=== PATIENT | female | born 1940 ===

== ENCOUNTER 2019-04-11 16:57 | Emergency (ER) | payer MEDICARE, SELFPAY ==
--- NOTE | 2019-04-11 17:21 | PC.NURSE ---
1715 spouse at desk stating he was not going to have his sitting in lobby as she was a Ca pt he was going to take her somewhere else.
== END 2019-04-11 17:21 | disposition left against medical advice (07) ==
PROVIDERS: PCP Family Medicine
DX: Z53.21 Procedure and treatment not carried out due to patient leaving prior to being seen by health care provider (principal)
CPT/HCPCS: 99199

== ENCOUNTER 2019-04-11 18:57 | Inpatient (IN) | payer MEDICARE, SELFPAY ==
--- NOTE | ~2019-04-11 | XR_ITS ---
EXAMINATION: XR chest 1V portable DATE: 04/11/2019 19:35 INDICATION: Pancreatic cancer presenting with weakness suspicious for stroke. TECHNIQUE: frontal view of the chest was obtained. COMPARISON: None FINDINGS: Right internal jugular central venous port catheter with distal tip at the caudal superior vena cava. The lungs are clear with no focal airspace opacities, pulmonary edema, pleural effusion or pneumotho rax. The cardiomediastinal silhouette is normal. Moderate thoracolumbar spondylosis with bridging ost eophytes at multiple levels consistent with diffuse idiopathic skeletal hyperostosis (DISH). Bilatera l rotator cuff calcific tendinitis. IMPRESSION: 1. No acute cardiopulmonary disease. Reviewed, dictated and finalized at location A. ED LINEN DISTRIBUTOR
--- NOTE | ~2019-04-11 | MR_ITS ---
EXAMINATION: MR brain/brain stem wo/w con DATE: 04/12/2019 14:33 INDICATION: Cerebral vascular accident. Right hemiparesis. TECHNIQUE: Magnetic resonance imaging (MRI) of the brain and brainstem was performed without and with 12 mL MultiHance intravenous contrast. Sequences included sagittal and axial T1-weighted FSE, axial diffusion-weighted FS EPI, axial T2*-weighted GRE, axial T2-weighted FLAIR Propeller, and axial T2-we ighted Propeller. Postcontrast sequences included axial, sagittal, and coronal T1-weighted FSE. Appar ent diffusion coefficient (ADC) maps were created. COMPARISON: Head CT 04/11/2019 FINDINGS: There is no intracranial hemorrhage, acute infarction, or abnormal intracranial mass lesion . There are scattered areas of nonspecific increased T2-weighted signal intensity in the cerebral whi te matter, which is within normal limits for the patient's age. The ventricles are normal in size. Th e orbits are normal. There is mild mucosal thickening in the paranasal sinuses. The mastoid air cells are normal. IMPRESSION: 1. Normal aging brain. Reviewed, dictated and finalized at location A. ER CONSULTANT IMPRESSION: 1. Normal aging brain.
--- NOTE | ~2019-04-11 | CT_ITS ---
EXAMINATION: CT brain wo con DATE: 04/11/2019 19:32 INDICATION: Neurologic changes TECHNIQUE: Computed tomography (CT) of the head was performed without intravenous contrast. Sagittal and coronal reconstructions were performed. The mA was adjusted according to patient size. Iterative reconstruction technique was employed. The dose-length product was 605.33 mGy-cm. COMPARISON: None FINDINGS: No acute intracranial hemorrhage, acute infarction or abnormal extra axial fluid collection. There is minimal scattered white matter hypoattenuation consistent with chronic small vessel ischemic disease . Symmetric prominence of the sulci consistent with mild age-appropriate diffuse cerebral volume los s. Ventricles are normal and symmetric. No mass/mass effect. The orbits, paranasal sinuses and masto id air cells are normal. IMPRESSION: 1. No acute intracranial process. 2. Age-related changes including mild diffuse volume loss and minimal scattered white matter hypoatte nuation consistent with chronic small vessel ischemic disease. Reviewed, dictated and finalized at location A. AULICS TEACHER IMPRESSION: 1. No acute intracranial process. 2. Age-related changes including mild diffuse volume loss and minimal scattered white matter hypoattenuation consistent with chronic small vessel ischemic dis ease.
[2019-04-11 19:07] VITALS: BP 114/53; PULSE 111; RESP 18; TEMP 37; O2SAT 99
--- NOTE | 2019-04-11 19:12 | ECG_ITS ---
Measurements Intervals [place] Rate: 110 P: 70 CO: 131 QRS: -3 QRSD: 85 T: 75 QT: 307 QTc: 416 Interpretive Statements SINUS TACHYCARDIA DELAYED PRECORDIAL R/S TRANSITION NONSPECIFIC T-WAVE ABNORMALITY- LATERAL LEADS BASELINE ARTIFACT- I, III, AVR ABNORMAL ECG Electronically Signed On 04-11-2019 20:06:52 PRESS BREAKER by Amish Perez D.O.
[2019-04-11 19:16] LABS: Glucose Point of Care 81 (65-105)
[2019-04-11 19:26] LABS: Mean Corpuscular HGB Conc 31.3 g/dl (32-36); Mean Corpuscular Hemoglobin 26.5 pg (26-34); Mean Corpuscular Volume 84.7 fl (80-100); Mean Platelet Volume 10.7 fl (7.4-10.4); Platelet Count Result 166 k/mm3 (150-375); Red Blood Count 3.78 M/mm3 (4.2-5.4); Red Cell Distribution Width 16.1 % (11.5-14.5); White Blood Count 20.2 K/mm3 (4.5-10.0)
[2019-04-11 19:38] LABS: INR 1.4; Prothrombin Time 16.3 Seconds (11.1-14.7)
[2019-04-11 19:38] LABS: Blood Urea Nitrogen 15 mg/dL (7-17); Calcium 8.5 mg/dL (8.4-10.2); Carbon Dioxide 31 mmol/L (22-30); Chloride 95 mmol/L (98-107); Estimated Glomerular Filt Rate > 60; Glucose 88 mg/dL (65-105); Potassium 3.6 mmol/L (3.4-5.0); Sodium 135 mmol/L (137-145)
[2019-04-11 19:44] LABS: Lymphocytes Absolute Manual 5.05 K/mm3 (1.1-4.5); Monocytes Percent Manual 2 % (3-9); Neutrophils Percent Manual 73 % (46-73); Total Cells Counted 100
[2019-04-11 19:45] LABS: Toxic Granulation Present (NORMAL)
[2019-04-11 19:46] VITALS: BP 134/54; PULSE 110; RESP 18; O2SAT 98
[2019-04-11 19:49] LABS: Troponin I < 0.012 ng/mL (0.000-0.034)
--- NOTE | 2019-04-11 19:57 | ED.NEUROSD ---
HPI - Neuro Symptoms/Deficit General Chief Complaint: Neuro Symptoms/Deficit Stated Complaint: unable to move leg earlier Time Seen by Provider: 04/11/19 19:43 Source: patient, family () and RN notes reviewed Mode of arrival: wheelchair Limitations: no limitations History of Present Illness HPI Narrative: A 78 y/o female presents to the ED from the [facility] unable to move her rt leg beginning at 2 AM Related Data Allergies Allergy/AdvReac Type Severity Reaction Status Date / Time No Known Allergies Allergy Unverified 07/07/17 09:28 [facility] Past Medical History Medical History Essential (primary) hypertension History of rectal polyps Hypercholesteremia Hypoglycemia M[facility] (current) use of insulin Malignant neoplasm of pancreas, unspecified Mixed hyperlipidemia DONNELL (obstructive sleep apnea) Other hyperlipidemia Pancreatic mass Type 2 diabetes mellitus with hyperglycemia, with long-term current use of insulin Surgical History Surgical History History of spinal surgery Social History Social History Smoking status: Never smoker Alcohol intake: never Gender identity (if verbalized by the patient): Female Exam Const: General: no acute distress, well developed and ill appearing chronically Orientation/consciousness: patient oriented x3 (alert) and Other orientation findings (Alert) Limitations: no limitations and other limitations (elderly and frail) HENMT: Head: normocephalic and atraumatic Ears: external ears normal General nose exam: No nasal discharge present and no epistaxis Face and sinus: face symmetric Mouth: Yes lip normal, Yes tongue normal and Yes moist mucous membranes Throat: other (No exudate, no erythema) Eyes: Conjunctivae: conjunctivae normal Sclera: sclerae normal EOM: EOMs intact bilaterally Neck: Neck: full ROM, no lymphadenopathy and supple Thyroid: thyroid normal Chest: Chest palpation & inspection: no tenderness and other (port in place) Resp: Effort & Inspection: normal respiratory effort Auscultation: clear to auscultation bilaterally, no rales, no rhonchi, no wheezes and other (breath sounds equal) Cardio: Rate: regular rate Rhythm: regular rhythm Heart sounds: no gallops and no murmurs GI: Inspection: non-distended GI Palp: No abdominal tenderness and Yes Soft to palpation Auscultation: other (bowel sounds present) : General: Yes no CVA tenderness Back/Spine/Pelvis: Back: no CVA tenderness Thoracic/Lumbar Spine: thoracic and lumbar spine normal to inspection Skin: General skin exam: normal color and no rashes or lesions noted Neuro: General: patient oriented x3 (alert), moves all extremities and no focal motor deficits Cranial nerves: Yes facial symmetry and Yes Other cranial nerve findings present (drop 5- strength all over RLE does not appear to be disproportionally weak) Speech: normal speech Motor exam (neuro): Motor abnormalities not present Extrem: General: full ROM and no pedal edema Left lower extremity: foot (droop) Psych: Affect: normal affect Course Vital Signs Vital signs: Vital Signs Temperature 98.6 F 04/11/19 19:07 Pulse Rate 111 H 04/11/19 19:07 Respiratory Rate 18 04/11/19 19:07 Blood Pressure 114/53 L 04/11/19 19:07 Pulse Oximetry 99 04/11/19 19:07 Temperature 98.6 F 04/11/19 19:07 Pulse Rate 110 H 04/11/19 19:46 Respiratory Rate 18 04/11/19 19:46 Blood Pressure 134/54 L 04/11/19 19:46 Pulse Oximetry 98 04/11/19 19:46 MDM - Neuro Symptoms/Deficit Lab Data Result diagrams: 04/11/19 19:18 04/11/19 19:18 Labs: Lab Results 04/11/19 04/11/19 04/11/19 Range/Units 19:15 19:18 19:18 WBC 20.2 H (4.5-10.0) K/mm3 RBC 3.78 L (4.2-5.4) M/mm3 Hgb 10.0 L (12.0-15.0) g/dL Hct 32.0 L (37.0-47.0) % MCV 84.
[2019-04-11 20:45] VITALS: BP 130/68; PULSE 110; RESP 18; O2SAT 96
--- NOTE | 2019-04-11 21:31 | ED.WEAKNESS ---
HPI - Weakness General Chief complaint: Neuro Symptoms/Deficit Stated complaint: unable to move leg earlier Time Seen by Provider: 04/11/19 19:43 Source: patient, family and RN notes reviewed Mode of arrival: wheelchair Limitations: no limitations History of Present Illness HPI Narrative: A 78 y/o female presents to the ED from the [facility] with RLE weakness. The pt states that she got up at 2AM this morning to use the restroom but that she was unable to move her RLE. She reports that after 8AM she was able to move it again but that she has been unable to walk like normal because she has been having generalized weakness. She denies any fevers, chills, SOB, N/V/D, ABD pain, and any other medical complaints at this time. MD Complaint: focal weakness Onset (ago): hour(s) (18) Duration: now resolved Location: RLE Associated symptoms: other (generalized weakness) Related Data Allergies Allergy/AdvReac Type Severity Reaction Status Date / Time No Known Allergies Allergy Unverified 07/07/17 09:28 Review of Systems Review of Systems: All systems reviewed & are unremarkable except as noted in HPI and below Constitutional: Constitutional: Denies chills, Denies fatigue, Denies fever(s), Denies headache(s), Denies night sweats and Reports weakness (generalized) Eyes: Eyes: Denies change in vision, Denies loss of vision and Denies other visual disturbances ENT: Denies headache(s), Denies hoarseness, Denies epistaxis, Denies nasal congestion and Denies sore throat Cardiovascular: Cardiovascular: Denies chest pain, Denies leg edema, Denies palpitations and Denies dyspnea Respiratory: Respiratory: Denies cough, Denies dyspnea and Denies wheezing Gastrointestinal: Gastrointestinal: Denies abdominal pain, Denies diarrhea, Denies nausea and Denies vomiting Genitourinary: Genitourinary: Denies hematuria, Denies urinary frequency and Denies dysuria Musculoskeletal: Musculoskeletal: Denies abnormal gait, Denies deformity, Denies joint swelling, Denies muscle weakness and Denies numbness Integumentary/Breasts: Skin/Breast: Denies rash, Denies unusual bruising and Denies wounds Neurologic: Denies abnormal gait, Denies headache(s), Reports focal weakness (RLE - resolved), Denies loss of vision and Denies numbness Psychiatric: Psychiatric: Reports no additional psychiatric complaints Endocrine: Endocrine: Denies fatigue and Denies palpitations Hematologic/Lymphatic: Hematologic/Lymphatic: Denies easy bleeding and Denies easy bruising Allergic/Immunologic: Allergic/Immunologic: Denies wheezing PMFSH Past Medical History Medical History Essential (primary) hypertension History of rectal polyps Hypercholesteremia 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 Malignant neoplasm of pancreas, unspecified Mixed hyperlipidemia DONNELL (obstructive sleep apnea) Other hyperlipidemia Pancreatic mass Type 2 diabetes mellitus with hyperglycemia, with long-term current use of insulin Surgical History Surgical History History of spinal surgery Social History Social History Smoking status: Never smoker Alcohol intake: never Gender identity (if verbalized by the patient): Female Exam Const: General: no acute distress, well developed and ill appearing chronically Nutritional Appearance: other (elderly and frail) Orientation/consciousness: patient oriented x3 (alert) and Other orientation findings (Alert) Limitations: no limitations HENMT: Head: normocephalic and atraumatic Ears: external ears normal General nose exam: No nasal discharge present and no epistaxis Face and sinus: face symmetric Mouth: Yes lip normal, Yes tongue normal and Yes moist mucous membranes Throat: other (No exudate, no erythema) Eyes: Conjunctivae: conjunctivae normal Sclera: sclerae normal EOM: EOMs intact bilaterally Nec
[2019-04-11 22:39] LABS: Glucose Point of Care 58 (65-105)
[2019-04-11 23:20] VITALS: BP 133/63; PULSE 92; RESP 18; O2SAT 96
[2019-04-12] VITALS (7 sets, daily range): BP systolic 126–164; BP diastolic 52–70; PULSE 72–117; RESP 16–21; TEMP 36.2–37.2; O2SAT 94–99; BMI 24.9
--- NOTE | 2019-04-12 | ECHO_ITS ---
Patient Info Name: Avis Rivas Age: 78 years : 1940 Gender: Female Ht: 63 in Wt: 140 lbs BSA: 1.69 m2 HR: 114 bpm BP: 150 / 70 mmHg Technical Quality: Good Exam Date: 04/12/2019 10:33 AM Exam Location: [facility] Pulmonary Exam Room: [facility] Patient Status: Outpatient Admit Date: 04/11/2019 Staff Ordering Physician: Donaldo Johnston PA-C [employer] Professor: Jody Smith RDCS Attending Provider: Donaldo Johnston PA-C Referring Physician: Preston CLANCY; Exam Type: CA echo doppler w bubble study Study Info Indications - right side weakness Complete two-dimensional, color flow and Doppler transthoracic echocardiogram is performed with agitated saline. Summary 1. Left ventricular chamber dimension is normal. 2. Ventricular septum is sigmoid shaped. 3. Left ventricular systolic function is normal, estimated at 65-70%. 4. The left ventricular diastolic function is grade I diastolic dysfunction. 5. E/e' 10 is mildy elevated. 6. Left atrial chamber dimension is mildly enlarged. 7. There is mild tricuspid valve regurgitation. 8. No pulmonary hypertension, estimated pulmonary arterial systolic pressure is 31 mmHg. Left Ventricle E/e' 10 is mildy elevated. Ventricular septum is sigmoid shaped. Left ventricular chamber dimension is normal. Left ventricular systolic function is normal, estimated at 65-70%. The left ventricular diastolic function is grade I diastolic dysfunction. Right Ventricle Right ventricular chamber dimension is normal. Right ventricular systolic function is normal. Left Atria Left atrial chamber dimension is mildly enlarged. Right Atria Right atrial chamber dimension is normal. Atrial Septum Agitated saline administered with and without valsalva maneuver that opacified right sided chambers without shunt to left sided chambers. Intact interatrial septum visualized by color flow and agitated saline imaging. Aortic Valve The aortic valve is trileaflet. There is no aortic valve stenosis. There is no aortic valve regurgitation. Pulmonic Valve There is no pulmonic regurgitation. Mitral Valve There is no mitral valve stenosis. There is no mitral valve regurgitation. Tricuspid Valve There is mild tricuspid valve regurgitation. No pulmonary hypertension, estimated pulmonary arterial systolic pressure is 31 mmHg. Pericardium/Pleural There is no pericardial effusion. Inferior Vena Cava Normal inferior vena cava with >50% collapse upon inspiration consistent with normal right atrial pressure, 5 mmHg. Aorta The aortic root size at the sinus of Valsalva is normal. Left Ventricular Outflow Tract Name Value Normal LVOT 2D LVOT Diameter 2.0 cm LVOT Doppler LVOT Peak Gradient 7 mmHg LVOT Mean Gradient 4 mmHg LVOT VTI 22 cm LVOT VTI/AV VTI Ratio 0.8 LVOT Stroke Volume 68 ml LVOT CO 19.1 l/min LVOT CI 11.3 l/min/m2 Pulmonic Valve ---
--- NOTE | 2019-04-12 01:05 | PM.IMHP ---
H&P: HPI History of Present Illness Chief complaint: pancreatic cancer generalized weakness Narrative: This is a 78-year-old diabetic female who is known to chronically be anticoagulated on Xarelto secondary to left lower extremity DVT and who is known to have pancreatic adenocarcinoma with hepatic metastasis that was diagnosed over a year ago for which she follows up at [facility]. Apparently the patient woke up around 2:00 a.m. this morning to use the bathroom and was unable to move her right lower extremity. The patient's significant other tells me that normally her right lower extremity is her good limb and she has difficulty ambulating normally with her left lower extremity. The patient could not ambulate and for several hours she could not move her right leg. Around 8:00 a.m. in the morning she was able to move her right lower extremity again. She denies any numbness or tingling. She denies any other significant focal neurological symptoms. She does report that her total function did not return until around 3:00 p.m. in the afternoon. She denies any type of seizure-like activity recently. She denies any recent head trauma. On further questioning she also denies any recent fevers, chills, shortness of breath, chest pain, nausea, vomiting, diarrhea, abdominal pain, hematuria, or rectal bleeding. Patient has not had any blurry or double vision recently. She denies any facial droop difficulty swallowing or focal neurological symptoms. The patient does report that she just recently finished a course of antibiotics for a urinary tract infection. She did just receive chemotherapy yesterday at [facility] and is not sure exactly what kind of chemotherapy she is. Her came her doctor just really increased her home pain medication secondary to diffuse generalized pain. The patient was evaluated emergency room this evening and brain CT was unremarkable. We been asked to admit the patient to the hospital for her stroke-like symptoms and associated debility. 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 Meds Home Medications and Allergies Home Medications Medication Instructions Recorded Confirmed Type atenolol 50 mg PO DAILY 04/12/19 04/12/19 History cefdinir 300 mg PO BID 04/12/19 04/12/19 History glipizide 10 mg PO BID 04/12/19 04/12/19 History insulin aspart U-100 [Novolog 15 unit SUBCUT AC 04/12/19 04/12/19 History Flexpen U-100 Insulin] insulin glargine [Basaglar KwikPen 22 unit SUBCUT DAILY 04/12/19 04/12/19 History U-100 Insulin] lactulose 5 - 10 ml PO TID PRN 04/12/19 04/12/19 History lisinopril 5 mg PO DAILY 04/12/19 04/12/19 History olanzapine 7.5 mg PO HS 04/12/19 04/12/19 History ondansetron 8 mg TRANSLINGUAL Q8H PRN 04/12/19 04/12/19 History oxycodone 5 mg PO Q4H PRN 04/12/19 04/12/19 History prochlorperazine maleate 10 mg PO QID PRN 04/12/19 04/12/19 History rivaroxaban [Xarelto] 20 mg PO DAILY 04/12/19 04/12/19 History simvastatin 20 mg PO HS 04/12/19
[2019-04-12] MEDS: LACTATED RINGERS 1,000 ML 125 ML IV CONT ×2 (03:25→12:07)
[2019-04-12 03:31] LABS: Glucose Point of Care 156 (65-105)
[2019-04-12 06:08] LABS: Basophils Absolute Auto 0.1 K/mm3 (0.0-0.1); Basophils Percent Auto 0.4 % (0.2-1.2); Eosinophils Absolute Auto 0.6 K/mm3 (0-0.3); Eosinophils Percent Auto 4.3 % (0-4.4); Hematocrit 30.5 % (37.0-47.0); Hemoglobin 9.5 g/dL (12.0-15.0); Immature Granulocyte Absolute 0.09 K/mm3 (0.00-0.031); Immature Granulocyte Percent A 0.6 % (0-0.5); Lymphocytes Absolute Auto 2.06 K/mm3 (0.9-3.2); Lymphocytes Percent Auto 13.8 % (18.3-44.2); Mean Corpuscular HGB Conc 31.1 g/dl (32-36); Mean Corpuscular Hemoglobin 26.5 pg (26-34); Mean Platelet Volume 11.8 fl (7.4-10.4); Monocytes Absolute Auto 0.5 K/mm3 (0.1-0.6); Monocytes Percent Auto 3.1 % (2.6-8.5); Neutrophils Absolute Auto 11.6 K/mm3 (1.3-6.7); Neutrophils Percent Auto 77.8 % (45.5-73.1); Platelet Count Result 148 k/mm3 (150-375); Red Blood Count 3.59 M/mm3 (4.2-5.4)
[2019-04-12 06:27] LABS: Blood Urea Nitrogen 10 mg/dL (7-17); Carbon Dioxide 30 mmol/L (22-30); Chloride 95 mmol/L (98-107); Estimated CRCL calculation 78 ml/min; Estimated Glomerular Filt Rate > 60; Glucose 142 mg/dL (65-105); Potassium 3.6 mmol/L (3.4-5.0); Sodium 133 mmol/L (137-145)
[2019-04-12 06:46] LABS: Cholesterol 111 mg/dL (0-200); HDL Direct 44 mg/dL; Triglycerides 81 mg/dL (<150)
[2019-04-12 06:57] LABS: LDL Cholesterol Direct 46 mg/dL
[2019-04-12 07:24] LABS: Thyroid Stimulating Hormone Reflex 0.761 uIU/mL (0.465-4.68)
--- NOTE | 2019-04-12 08:25 | PC.NURSE ---
0825 Clarified with Donaldo KAT that it was ok to give Glucophage, Glipizide, and Januvia along with Lantus and Novolog with a blood sugar of 140.
[2019-04-12 08:27] LABS: Glucose Point of Care 140 (65-105)
[2019-04-12] MEDS: ASPIRIN 81 MG CHEWABLE TABLET PO (08:27)
[2019-04-12] MEDS: metFORMIN HCL 500 MG TABLET 1000 MG PO ×2 (08:27→18:01)
[2019-04-12] MEDS: FAMOTIDINE 20 MG/2 ML VIAL IV PUSH ×2 (08:27→20:18)
[2019-04-12] MEDS: atenoloL 50 MG TABLET PO (08:28)
[2019-04-12] MEDS: RIVAROXABAN 20 MG TABLET PO (08:30)
[2019-04-12] MEDS: lisinopriL 5 MG TABLET PO (08:30)
[2019-04-12] MEDS: glipiZIDE 5 MG TABLET 10 MG PO (08:30)
--- NOTE | 2019-04-12 08:35 | PC.NURSE ---
At 0835 confirmed with Donaldo KAT that 15 units of Novolog and 22 units of Lantus given with a blood sugar of 140.
[2019-04-12] MEDS: INSULIN ASPART (*BKC) 100 UNITS/ML 15 UNITS SUB-Q (08:38)
[2019-04-12] MEDS: INSULIN GLARGINE (*BKC) 100 UNITS/ML 22 UNITS SUB-Q (08:39)
[2019-04-12] MEDS: GLUCOSE ORAL GEL 15 GM OF GLUCSE IN 37.5 GM TUBE PO ×2 (12:06→12:45)
[2019-04-12 12:33] LABS: Glucose Point of Care 32 (65-105)
[2019-04-12 12:42] LABS: Glucose Point of Care 69 (65-105)
[2019-04-12 13:17] LABS: Glucose Point of Care 54 (65-105)
[2019-04-12 13:17] LABS: Glucose Point of Care 64 (65-105)
--- NOTE | 2019-04-12 13:20 | PM.IMPN ---
Progress Note: A&P Assessment and Plan (1) Right leg weakness: Code(s): R29.898 - Other symptoms and signs involving the musculoskeletal system Status: Acute Assessment and Plan: Patient states her RLE has improved. Here to r/o acute CVA vs. debility and weakness vs. hypoglycemia. The patient was not a candidate for tPA therapy given that she was at her baseline > 21 hrs prior to admission time. Echo showed no intra-atrial shunting. Awaiting MRI to be done. Lipid panel grossly unremarkable Patient on ASA daily and Xarelto Neurology has been consulted and appreciate input (2) Pancreatic cancer: Code(s): C25.9 - Malignant neoplasm of pancreas, unspecified Status: Acute Assessment and Plan: Continue heme-onc recommendations. (3) General weakness: Code(s): R53.1 - Weakness Status: Acute Assessment and Plan: Secondary to chronic illness. PT/OT evaluation ordered (4) Essential (primary) hypertension: Code(s): I10 - Essential (primary) hypertension Status: Acute Assessment and Plan: BP 150s sys. Monitor blood pressure. Home BP medications (5) Type 2 diabetes mellitus with hyperglycemia, with long-term current use of insulin: Code(s): E11.65 - Type 2 diabetes mellitus with hyperglycemia; Z79.4 - manager terminal (current) use of insulin Status: Acute Assessment and Plan: Nursing reports BGL dropping to the 30s today after her mealtime 15 u Aspart was given. Patient's glucose rising, but still low; hypoglycemia protocol in place. Upon further discussion with the , she is actually on a home sliding scale starting at 13 units when BGL is at 150-175 which was not documented when she first presented to the hospital. I discussed the importance to follow up with her forester aide as her blood glucose dropped significantly with 15 units given when her BGL was in 140s. Will continue home lantus for now Hold glipizide and Januvia for now Accuchecks, hospital SSI Coverage, hypoglycemia protocol Will recommend a possible lower mealtime dosing of insulin until they speak with their forester aide (6) Mixed hyperlipidemia: Code(s): E78.2 - Mixed hyperlipidemia Status: Acute Assessment and Plan: Continue simvastatin PO. (7) DONNELL (obstructive sleep apnea): Code(s): G47.33 - Obstructive sleep apnea (adult) (pediatric) Status: Acute Assessment and Plan: Continue CPAP (8) Leukocytosis: Code(s): D72.829 - Elevated white blood cell count, unspecified Status: Acute Assessment and Plan: Possibly secondary to chemotherapy, although has improved to 15k today. The patient just finished treatment for an acute UTI. Trend tomorrow should she stay (9) Chronic anemia: Code(s): D64.9 - Anemia, unspecified Status: Acute Assessment and Plan: Likely seconadry to chemotherapy. No signs of acute blood loss. Monitor H/H, transfuse prn. Subjective Date/time seen: 04/12/19 13:20 Interval history: Patient is a 78 yo F with history of diabetic female who is known to chronically be anticoagulated on Xarelto secondary to left lower extremity DVT and who is known to have pancreatic adenocarcinoma with hepatic metastasis that was diagnosed over a year ago for which she follows up at [facility] who is here for right lower leg weakness and for a stroke work up. Patient states her leg weakness has nearly improved. believes her slurred speech has also improved. He tells me when this first started, he though it was due to low blood sugar, but note
--- NOTE | 2019-04-12 13:53 | PCOTNOTE ---
OT evaluation attempted this PM. Pt being taken for testing. Will attempt OT evaluation at later time.
[2019-04-12 14:00] LABS: Glucose 72 mg/dL (65-105)
--- NOTE | 2019-04-12 14:31 | SLEEP ---
Attempted PT eval . Pt off floor to MRI. Will try again tomorrow.
--- NOTE | 2019-04-12 15:12 | PC.NURSE ---
Spoke to Donaldo KAT about patient's blood sugar of 140 and verified that he wanted patients home meds including Glucophage, glipizide, and Januvia given including insulin.
--- NOTE | 2019-04-12 17:03 | CONS_ITS ---
DATE OF CONSULTATION: HISTORY: This 78 years old lady has been admitted to [facility] through the emergency room for the complaints of inability to move her right lower extremity when she woke up around 2:00 a.m. in the morning to go to the bathroom. Normally, her right lower extremity is her good limb. She has difficulty in ambulation normally with her left lower extremity. She could not move for several hours, around 8:00 a.m., she was able to move her right lower extremity. She gave no history of associated tingling or numbness. Her total function did not return up until around 3:00 p.m. in the afternoon. She had no seizure-like activity. No fever. No general symptomatology. No visual symptomatology. She recently finished a course of antibiotic for UTI. She does receive chemotherapy and did receive yesterday at the [facility]. She was initially evaluated in the emergency room. Her CT scan of the head was negative. She was admitted to the hospital for further evaluation because of her stroke-like symptom. PAST MEDICAL HISTORY: 1. 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 2. Pancreatic adenocarcinoma with hepatic metastasis. Her past medical history is also consistent with 1. Hypertension. 2. Hypercholesterolemia. 3. Long-term use of insulin. 4. Hyperlipidemia. 5. Obstructive sleep apnea. 6. In the past, she has undergone spinal surgery. SOCIAL HISTORY: She is a never smoker, never drinker. MEDICATIONS: Taking multiple medications as outlined. ALLERGIES: SHE IS NOT ALLERGIC TO ANY MEDICATION. PHYSICAL EXAMINATION: VITAL SIGNS: Evaluation up until now revealed her to be afebrile with temp of 37.0, pulse 111, respiration 18, blood pressure 114/53. GENERAL: Physical examination is normal. She is awake, alert, cooperative, in no obvious acute distress, but somewhat ill-appearing. HEENT: Head normocephalic with no cranial bruit. Ear, nose, throat examination normal. NECK: Supple with no cervical bruit. No thyromegaly. No lymphadenopathy. HEART: Regular. LUNGS: Clear. ABDOMEN: Soft. NEUROLOGICAL: She is awake, alert, able to follow the verbal commands appropriately. Pupils round, regular. Joyner of vision full. Extraocular movements full. Face symmetrical. Tongue midline. Motor examination revealed her to have weakness in the right lower extremity, more so in the left lower extremity. Deep tendon reflexes are somewhat symmetrical, but sluggish in the right lower extremity. Plantars are downgoing. LABORATORY STUDIES: Evaluation up until now included routine blood studies, which revealed CBC with a leukocytosis, hemoglobin only 9.5, and basic metabolic panel are normal. Creatinine is only 0.4, calcium 8.0. She had a head CT scan when she came to the emergency room, which was negative for the bleed except the age-related changes. Chest x-ray with no acute cardiopulmonary disease. Echocardiogram has also been done, which documented left ventricle dimensions are normal. Left atrium is mildly enlarged with mild tricuspid regurgitation. At this stage, she is receiving the multiple medications including 1. Atenolol 50 mg daily. 2. Cefdinir 300 mg twice a day. 3. Glipizide 10 mg twice a day. 4. NovoLog 15 units subcu a.c. 5. Lactulose p.r.n. 6. Lisinopril 5 mg daily. 7. Olanzapine 7.5 mg at bedtime. 8. Oxycodone 5 mg q.4 hours p.r.n. 9. Prochlorperazine 10 mg q.i.d. 10. Rivaroxaban 20 mg daily. 11. Simvastatin 20 mg at bedtime. 12. Sitagliptin tablet p.o. b.i.d. Condition during her initial complaint, we will obtain the further evaluation, particularly the MRI of the brain to make sure there is no tumor and no new stroke.
[2019-04-12 17:04] LABS: Glucose Point of Care 62 (65-105)
[2019-04-12 18:00] LABS: Glucose Point of Care 107 (65-105)
[2019-04-12] MEDS: SIMVASTATIN 20 MG TABLET PO (20:18)
[2019-04-12] MEDS: TOLNAFTATE 1% POWDER 45 GM BTL 1 APPLIC TOPICAL (20:22)
[2019-04-12 22:00] LABS: Glucose Point of Care 101 (65-105)
[2019-04-13] MEDS: GLUCOSE ORAL GEL 15 GM OF GLUCSE IN 37.5 GM TUBE PO ×2 (00:53→01:20)
[2019-04-13 01:59] LABS: Glucose Point of Care 50 (65-105)
[2019-04-13 01:59] LABS: Glucose Point of Care 82 (65-105)
[2019-04-13 01:59] LABS: Glucose Point of Care 44 (65-105)
[2019-04-13 03:46] VITALS: PULSE 88; O2SAT 96
[2019-04-13 04:49] VITALS: BP 132/64; PULSE 97; RESP 20; TEMP 36.4; O2SAT 100
[2019-04-13 05:49] LABS: Glucose Point of Care 150 (65-105)
[2019-04-13 06:05] LABS: Basophils Absolute Auto 0.1 K/mm3 (0.0-0.1); Basophils Percent Auto 0.3 % (0.2-1.2); Eosinophils Absolute Auto 0.7 K/mm3 (0-0.3); Eosinophils Percent Auto 4.7 % (0-4.4); Hematocrit 31.6 % (37.0-47.0); Hemoglobin 9.9 g/dL (12.0-15.0); Immature Granulocyte Absolute 0.06 K/mm3 (0.00-0.031); Immature Granulocyte Percent A 0.4 % (0-0.5); Lymphocytes Absolute Auto 2.39 K/mm3 (0.9-3.2); Lymphocytes Percent Auto 15.9 % (18.3-44.2); Mean Corpuscular HGB Conc 31.3 g/dl (32-36); Mean Corpuscular Hemoglobin 26.8 pg (26-34); Mean Corpuscular Volume 85.4 fl (80-100); Mean Platelet Volume 11.2 fl (7.4-10.4); Monocytes Absolute Auto 0.3 K/mm3 (0.1-0.6); Monocytes Percent Auto 1.9 % (2.6-8.5); Neutrophils Absolute Auto 11.5 K/mm3 (1.3-6.7); Neutrophils Percent Auto 76.8 % (45.5-73.1); Platelet Count Result 125 k/mm3 (150-375); Red Cell Distribution Width 16.1 % (11.5-14.5)
[2019-04-13 06:25] LABS: Blood Urea Nitrogen 7 mg/dL (7-17); Carbon Dioxide 25 mmol/L (22-30); Chloride 96 mmol/L (98-107); Estimated CRCL calculation 99 ml/min; Estimated Glomerular Filt Rate > 60; Glucose 150 mg/dL (65-105); Magnesium 1.6 mg/dL (1.6-2.3); Potassium 4.3 mmol/L (3.4-5.0)
[2019-04-13 07:26] LABS: Sodium 133 mmol/L (137-145)
[2019-04-13] MEDS: ASPIRIN 81 MG CHEWABLE TABLET PO (08:33)
[2019-04-13] MEDS: RIVAROXABAN 20 MG TABLET PO (08:33)
[2019-04-13] MEDS: lisinopriL 5 MG TABLET PO (08:33)
[2019-04-13] MEDS: metFORMIN HCL 500 MG TABLET 1000 MG PO ×2 (08:33→17:54)
[2019-04-13] MEDS: FAMOTIDINE 20 MG/2 ML VIAL IV PUSH (08:33)
[2019-04-13 08:34] VITALS: PULSE 100
[2019-04-13] MEDS: TOLNAFTATE 1% POWDER 45 GM BTL 1 APPLIC TOPICAL (08:34)
[2019-04-13] MEDS: atenoloL 50 MG TABLET PO (08:34)
[2019-04-13] MEDS: INSULIN GLARGINE (*BKC) 100 UNITS/ML 12 UNITS SUB-Q (08:40)
[2019-04-13 09:33] LABS: Glucose Point of Care 132 (65-105)
[2019-04-13 11:53] LABS: Glucose Point of Care 269 (65-105)
--- NOTE | 2019-04-13 12:17 | WPDNEUROPN ---
Progress Note: A&P Assessment and Plan (1) Chronic anemia: Code(s): D64.9 - Anemia, unspecified Status: Acute (2) Leukocytosis: Code(s): D72.829 - Elevated white blood cell count, unspecified Status: Acute (3) Right leg weakness: Code(s): R29.898 - Other symptoms and signs involving the musculoskeletal system Status: Acute (4) General weakness: Code(s): R53.1 - Weakness Status: Acute (5) Pancreatic cancer: Code(s): C25.9 - Malignant neoplasm of pancreas, unspecified Status: Acute (6) Type 2 diabetes mellitus with hyperglycemia, with long-term current use of insulin: Code(s): E11.65 - Type 2 diabetes mellitus with hyperglycemia; Z79.4 - prison (current) use of insulin Status: Acute (7) Pancreatic mass: Code(s): K86.89 - Other specified diseases of pancreas Status: Acute (8) Other hyperlipidemia: Code(s): E78.49 - Other hyperlipidemia Status: Acute (9) DONNELL (obstructive sleep apnea): Code(s): G47.33 - Obstructive sleep apnea (adult) (pediatric) Status: Acute (10) Mixed hyperlipidemia: Code(s): E78.2 - Mixed hyperlipidemia Status: Acute (11) Malignant neoplasm of pancreas, unspecified: Code(s): C25.9 - Malignant neoplasm of pancreas, unspecified Status: Acute (12) prison (current) use of insulin: Code(s): Z79.4 - prison (current) use of insulin Status: Acute (13) Essential (primary) hypertension: Code(s): I10 - Essential (primary) hypertension Status: Acute Additional Plan stable Review of Systems Review of Systems: All systems reviewed & are unremarkable except as noted in HPI and below Exam Const: General: cooperative, comfortable and no acute distress Nutritional Appearance: average body habitus Orientation/consciousness: oriented to person and oriented to place Eyes: General: appearance normal, both eyes and all related structures Alignment and Position: alignment normal Eyelids: eyelids normal Sclera: sclerae normal Cornea: corneas normal Pupils: Equal, round and reactive pupils present EOM: EOMs intact bilaterally Neck: Neck: full ROM and no lymphadenopathy Resp: Effort & Inspection: normal respiratory effort and able to speak in complete sentences Auscultation: clear to auscultation bilaterally Cardio: Rate: regular rate Rhythm: regular rhythm GI: Auscultation: normal bowel sounds Neuro: General: oriented to person, oriented to place, moves all extremities and no focal motor deficits Cranial nerves: Yes CN's II-XII intact bilaterally, Yes Equal, round and reactive pupils present, Yes Nystagmus not present, Yes Normal facial strength present, Yes Midline tongue present, Yes Symmetric palate elevation present, Yes Ability to bilaterally rotate head present and Yes Ability to bilaterally elevate shoulders present Speech: normal speech Gait exam (Neuro): Normal gait present Deep tendon reflexes (DTR's): Right triceps reflex intensity grade: 1+, Left triceps reflex intensity grade: 1+, Rt Biceps (C5, C6): 1+, Left biceps reflex intensity grade: 1+, Right brachioradialis reflex intensity grade: 1+, Left brachioradialis reflex intensity grade: 1+, Right patellar reflex intensity grade: 1+, Left patellar reflex intensity grade: 1+, Right ankle reflex intensity grade: 0 and Left ankle reflex intensity grade: 0 Plantar Reflex Responses: downgoing: bilateral Psych: Appearance: grossly normal Objective Data Vital Signs Vital Signs: Vital Signs - 24 hr 04/12/19 14:00 04/12/19 21:14 04/13/19 03:46 Temperature 37.1 C 36.8 C Pulse Rate 72 100 88 Respiratory Rate 18 18 Blood Pressure 164/68 H 126/62 Pulse Oximetry 98 97 96 04/13/19 04:49 04/13/19 08:34 Temperature 36.4 C L Pulse Rate 97 100 Respiratory Rate 20 Blood Pressure 132/64 Pulse Oximetry 100 Intake/Output Intake/Output: Intake & Output 04/10/1903/17
[2019-04-13 14:00] VITALS: BP 138/74; PULSE 96; RESP 18; TEMP 36.8; O2SAT 100
--- NOTE | 2019-04-13 14:40 | P.PNIM_ITS ---
Progress Note: A&P Assessment and Plan (1) Right leg weakness: Code(s): R29.898 - Other symptoms and signs involving the musculoskeletal system Status: Acute Assessment and Plan: Likely due to physical debility/weakness vs hypoglycemic event while at home. Patient has improved, clinically. CVA or brain masses ruled out with MRI yesterday. Echo showed no intra-atrial shunting. Lipid panel grossly unremarka ble * Patient on ASA daily and Xarelto, continue * Neurology has been consulted and appreciate input; patient okay for discharge from Neurology standpoint * I believe patient is medically stable for discharge with the stipulation that her home DM medications will need to be adjusted at discharge with close monitoring at home or at SNF and prompt follow up with her animal rides manager for further management * CC will work on possible placement for patient (2) Type 2 diabetes mellitus with hyperglycemia, with long-term current use of insulin: Code(s): E11.65 - Type 2 diabetes mellitus with hyperglycemia; Z79.4 - [facility] (current) use of insulin Status: Acute Assessment and Plan: Patient had several hypoglycemic events during stay. Her home medications were adjusted yesterday and again today, this appears to improve her her BGL. Home lantus decreased to 12 units today; BGL up to 300s today * Will continue home lantus regimen and Metformin at discharge * Will likely hold home glipizide and Januvia at discharge * Accuchecks, hospital SSI Coverage, hypoglycemia protocol during hospital stay * Will recommend a lower mealtime insulin dosing until they speak with their animal rides manager for further recommendations for management (3) Pancreatic cancer: Code(s): C25.9 - Malignant neoplasm of pancreas, unspecified Status: Acute Assessment and Plan: Continue heme-onc recommendations. (4) General weakness: Code(s): R53.1 - Weakness Status: Acute Assessment and Plan: Secondary to chronic illness. * PT/OT evaluation; PT recommends rehab and OT recommends HH therapy * I feel patient will benefit from SNF placement * CC to be work on placement if patient/POA is agreeable (5) Essential (primary) hypertension: Code(s): I10 - Essential (primary) hypertension Status: Acute Assessment and Plan: BP 130s sys this morning * Monitor blood pressure. * Continue Home BP medications (6) Mixed hyperlipidemia: Code(s): E78.2 - Mixed hyperlipidemia Status: Acute Assessment and Plan: Continue simvastatin PO. (7) DONNELL (obstructive sleep apnea): Code(s): G47.33 - Obstructive sleep apnea (adult) (pediatric) Status: Acute Assessment and Plan: Continue CPAP (8) Leukocytosis: Code(s): D72.829 - Elevated white blood cell count, unspecified Status: Acute Assessment and Plan: Possibly secondary to chemotherapy; WCC stable at 15k today. The patient just finished treatment for an acute UTI. * Trend tomorrow should she stay (9) Chronic anemia: Code(s): D64.9 - Anemia, unspecified Status: Acute Assessment and Plan: Likely seconadry to chemotherapy. No signs of acute blood loss. Hgb stable at 9.9 * Monitor H/H, transfuse prn.
--- NOTE | 2019-04-13 14:40 | PM.IMPN ---
Progress Note: A&P Assessment and Plan (1) Right leg weakness: Code(s): R29.898 - Other symptoms and signs involving the musculoskeletal system Status: Acute Assessment and Plan: Likely due to physical debility/weakness vs hypoglycemic event while at home. Patient has improved, clinically. CVA or brain masses ruled out with MRI yesterday. Echo showed no intra-atrial shunting. Lipid panel grossly unremarkable Patient on ASA daily and Xarelto, continue Neurology has been consulted and appreciate input; patient okay for discharge from Neurology standpoint I believe patient is medically stable for discharge with the stipulation that her home DM medications will need to be adjusted at discharge with close monitoring at home or at SNF and prompt follow up with her edge roller for further management CC will work on possible placement for patient (2) Type 2 diabetes mellitus with hyperglycemia, with long-term current use of insulin: Code(s): E11.65 - Type 2 diabetes mellitus with hyperglycemia; Z79.4 - care home (current) use of insulin Status: Acute Assessment and Plan: Patient had several hypoglycemic events during stay. Her home medications were adjusted yesterday and again today, this appears to improve her her BGL. Home lantus decreased to 12 units today; BGL up to 300s today Will continue home lantus regimen and Metformin at discharge Will likely hold home glipizide and Januvia at discharge Accuchecks, hospital SSI Coverage, hypoglycemia protocol during hospital stay Will recommend a lower mealtime insulin dosing until they speak with their edge roller for further recommendations for management (3) Pancreatic cancer: Code(s): C25.9 - Malignant neoplasm of pancreas, unspecified Status: Acute Assessment and Plan: Continue heme-onc recommendations. (4) General weakness: Code(s): R53.1 - Weakness Status: Acute Assessment and Plan: Secondary to chronic illness. PT/OT evaluation; PT recommends rehab and OT recommends HH therapy I feel patient will benefit from SNF placement CC to be work on placement if patient/POA is agreeable (5) Essential (primary) hypertension: Code(s): I10 - Essential (primary) hypertension Status: Acute Assessment and Plan: BP 130s sys this morning Monitor blood pressure. Continue Home BP medications (6) Mixed hyperlipidemia: Code(s): E78.2 - Mixed hyperlipidemia Status: Acute Assessment and Plan: Continue simvastatin PO. (7) DONNELL (obstructive sleep apnea): Code(s): G47.33 - Obstructive sleep apnea (adult) (pediatric) Status: Acute Assessment and Plan: Continue CPAP (8) Leukocytosis: Code(s): D72.829 - Elevated white blood cell count, unspecified Status: Acute Assessment and Plan: Possibly secondary to chemotherapy; WCC stable at 15k today. The patient just finished treatment for an acute UTI. Trend tomorrow should she stay (9) Chronic anemia: Code(s): D64.9 - Anemia, unspecified Status: Acute Assessment and Plan: Likely seconadry to chemotherapy. No signs of acute blood loss. Hgb stable at 9.9 Monitor H/H, transfuse prn. Subjective Date/time seen: 04/13/19 14:40 Interval history: Patient is a 78 yo F with history of diabetic female who is known to chronically be anticoagulated on Xarelto secondary to left lower extremity DVT and who is known to have pancreatic adenocarcinoma with hepatic metastasis that was diagnosed over a year ago for which she follows up at [facility] who is here
[2019-04-13] MEDS: INSULIN ASPART (*BKC) 100 UNITS/ML SUB-Q ×2 (14:49→17:55)
[2019-04-13 14:52] LABS: Glucose Point of Care 331 (65-105)
--- NOTE | 2019-04-13 17:15 | PM.DS ---
DS: Diagnosis Admitting Diagnosis Admitting Diagnosis: Other symptoms and signs involving the musculoskeletal system <Donaldo Johnston PA-C - Last Filed: 04/14/19 21:39> Discharge Diagnosis (1) Right leg weakness: Code(s): R29.898 - Other symptoms and signs involving the musculoskeletal system <Donaldo Johnston PA-C - Last Filed: 04/14/19 21:39> Status: Acute <LYDIA Gonzalez Last Filed: 04/14/19 21:39> Assessment and Plan: Likely due to physical debility/weakness vs hypoglycemic event while at home. Patient has improved, clinically. CVA or brain masses ruled out with MRI yesterday. Echo showed no intra-atrial shunting. Lipid panel grossly unremarkable Patient on ASA daily and Xarelto, continue Neurology has been consulted and appreciate input; patient okay for discharge from Neurology standpoint I believe patient is medically stable for discharge with the stipulation that her home DM medications will need to be adjusted at discharge with close monitoring at home per [facility] hosp[facility] meeting with patient/family tonight; likely home with hospice <Donaldo Johnston PA-C - Last Filed: 04/14/19 21:39> (2) Type 2 diabetes mellitus with hyperglycemia, with long-term current use of insulin: Code(s): E11.65 - Type 2 diabetes mellitus with hyperglycemia; Z79.4 - terminal gauger (current) use of insulin <LYDIA Gonzalez Last Filed: 04/14/19 21:39> Status: Acute <LYDIA Gonzalez Last Filed: 04/14/19 21:39> Assessment and Plan: Patient had several hypoglycemic events on day prior to discharge. Her home medications were adjusted on day prior to discharge and again on day of discharge; this appears to improve her her BGL. Home lantus decreased to 12 units today; BGL up to 300s today Will continue home lantus regimen Will hold home glipizide and Janumet at discharge Accuchecks, hospital SSI Coverage, hypoglycemia protocol during hospital stay Will recommend a lower mealtime insulin dosing; further management per [facility] <Donaldo ThomasClare Johnston PA-C - Last Filed: 04/14/19 21:39> (3) Pancreatic cancer: Code(s): C25.9 - Malignant neoplasm of pancreas, unspecified <Donaldo Johnston PA-C - Last Filed: 04/14/19 21:39> Status: Acute <Donaldo ThomasClare Johnston PA-C - Last Filed: 04/14/19 21:39> Assessment and Plan: Continue heme-onc recommendations. <Donaldo ThomasClare Johnston PA-C - Last Filed: 04/14/19 21:39> (4) General weakness: Code(s): R53.1 - Weakness <Donaldo ThomasClare Johnston PA-C - Last Filed: 04/14/19 21:39> Status: Acute <Donaldo ThomasClare Johnston PA-C - Last Filed: 04/14/19 21:39> Assessment and Plan: Secondary to chronic illness. PT/OT evaluation; PT recommends rehab and OT recommends HH therapy I feel patient will benefit from SNF placement; after discussion with CC and patient/family, they decided to meet with hospice services; [facility] met with patient and family tonight and will likely discharge home with hospice <Donaldo ThomasClare Johnston PA-C - Last Filed: 04/14/19 21:39> (5) Essential (primary) hypertension: Code(s): I10 - Essential (primary) hypertension <Donaldo Johnston PA-C - Last Filed: 04/14/19 21:39> Status: Acute <Donaldo ThomasLYDIA Smith Last Filed: 04/14/19 21:39> Assessment and Plan: BP 130s sys this morning Continue Home BP medications; further management per [facility] <Donaldo Johnston PA-C - Last Filed: 04/14/19 21:39> (6) Mixed hyperlipidemia: Code(s): E78.2 - Mixed hyperlipidemia <Donaldo Johnston PA-C - Last Filed: 04/14/19 21:39> Status: Acute <Donaldo Johnston PA-C - Last Filed: 04/14/19 21:39> Assessment and Plan: Continue simvastatin PO.
--- NOTE | 2019-04-13 17:15 | P.DS_ITS ---
DS: Diagnosis Admitting Diagnosis Admitting Diagnosis: Other symptoms and signs involving the musculoskeletal system <Donaldo Johnston PA-C - Last Filed: 04/14/19 21:39> Discharge Diagnosis (1) Right leg weakness: Code(s): R29.898 - Other symptoms and signs involving the musculoskeletal system <Donaldo Johnston PA-C - Last Filed: 04/14/19 21:39> Status: Acute <LYDIA Gonzalez Last Filed: 04/14/19 21:39> Assessment and Plan: Likely due to physical debility/weakness vs hypoglycemic event while at home. Patient has improved, clinically. CVA or brain masses ruled out with MRI yesterday. Echo showed no intra-atrial shunting. Lipid panel grossly unremarkable * Patient on ASA daily and Xarelto, continue * Neurology has been consulted and appreciate input; patient okay for discharge from Neurology standpoint * I believe patient is medically stable for discharge with the stipulation that her home DM medications will need to be adjusted at discharge with close monitoring at home per [facility] * [facility] hosp[facility] meeting with patient/family tonight; likely home with hospice <Donaldo Johnston PA-C - Last Filed: 03/04 21:39> (2) Type 2 diabetes mellitus with hyperglycemia, with long-term current use of insulin: Code(s): E11.65 - Type 2 diabetes mellitus with hyperglycemia; Z79.4 - retirement (current) use of insulin <Donaldo Johnston PA-C - Last Filed: 04/14/19 21:39> Status: Acute <Donaldo Johnston PA-C - Last Filed: 04/14/19 21:39> Assessment and Plan: Patient had several hypoglycemic events on day prior to discharge. Her home medications were adjusted on day prior to discharge and again on day of discharge; this appears to improve her her BGL. Home lantus decreased to 12 units today; BGL up to 300s today * Will continue home lantus regimen * Will hold home glipizide and Janumet at discharge * Accuchecks, hospital SSI Coverage, hypoglycemia protocol during hospital stay * Will recommend a lower mealtime insulin dosing; further management per [facility] <Donaldo Johnston PA-C - Last Filed: 04/14/19 21:39> (3) Pancreatic cancer: Code(s): C25.9 - Malignant neoplasm of pancreas, unspecified <Donaldo Johnston PA-C - Last Filed: 04/14/19 21:39> Status: Acute <LYDIA Gonzalez Last Filed: 04/14/19 21:39> Assessment and Plan: Continue heme-onc recommendations. <Donaldo Johnston PA-C - Last Filed: 04/14/19 21:39> (4) General weakness: Code(s): R53.1 - Weakness <Donaldo Johnston PA-C - Last Filed: 04/14/19 21:39> Status: Acute <Donaldo Johnston PA-C - Last Filed: 04/14/19 21:39> Assessment and Plan: Secondary to chronic illness. * PT/OT evaluation; PT recommends rehab and OT recommends HH therapy * I feel patient will benefit from SNF placement; after discussion with CC and patient/family, they decided to meet with hospice services; [facility] met with patient and family tonight and will likely discharge home with hospice <Donaldo Johnston PA-C - Last Filed: 04/14/19 21:39> (5) Essential (primary) hypertension: Code(s): I10 - Essential (primary) hypertension <Donaldo Johnston PA-C - Last Filed: 04/14/19 21:39> Status: Acute <Donaldo Johnston PA-C - Last Filed: 04/14/19 21:39> Assessment and Plan: BP 130s sys this morning * Continue Home BP medications; further management per [facility]
[2019-04-13 18:19] LABS: Glucose Point of Care 337 (65-105)
--- NOTE | 2019-04-13 18:51 | PC.NURSE ---
Kiana, shipping supervisor, was called in regards of the expressed concerns by the patients caregiver about the situation once the patient arrives home to set up [facility]. Patients caregiver was very angered that the patient was being sent home, he did not believe he could provide her the care that she needs and does not believe it is safe to take her home. At this time the SHEY Johnston has talked to him as well as care coordination and [facility].
== END 2019-04-13 19:15 | disposition hospice, home (50) | DRG 556 ==
LOC: ANHED 04-12 01:11 → ANH3MED 04-12 01:51
PROVIDERS: Emergency Medicine; Physician Assistant; Admitting Provider Family Medicine; Emergency Provider Emergency Medicine; PCP Family Medicine; Visit Provider Family Medicine
DX: M62.81 Muscle weakness (generalized) (principal); C78.7 Secondary malignant neoplasm of liver and intrahepatic bile duct; Z79.01 Long term (current) use of anticoagulants; Z86.718 Personal history of other venous thrombosis and embolism; Z79.899 Other long term (current) drug therapy; Z87.19 Personal history of other diseases of the digestive system; E78.2 Mixed hyperlipidemia; G47.33 Obstructive sleep apnea (adult) (pediatric); Z79.4 Long term (current) use of insulin; D64.81 Anemia due to antineoplastic chemotherapy; T45.1X5A Adverse effect of antineoplastic and immunosuppressive drugs, initial encounter; E11.649 Type 2 diabetes mellitus with hypoglycemia without coma
CPT/HCPCS: 36415; 70450; 70553; 71045; 80048; 80061; 82947; 82948; 83735; 84443; 84484; 85025; 85610; 85730; 93005; 93306; 96375; 97161; 97165; 99285; A9270; A9577; J1815; J7120